=== PATIENT | male | born 1960 | race African-American/Black ===

== ENCOUNTER 2017-04-21 06:27 | Day surgery (SDC) | payer OTHER ==
[2017-04-21] VITALS (12 sets, daily range): BP systolic 123–167; BP diastolic 67–100
[~2017-04-21] VITALS: Ht 172.7 cm; Wt 96.6 kg
[~2017-04-21 06:27] MED LIST: ALBUTEROL SULF8.5 GM INH; ASPIR 8181 MG ORAL; ATENOLOL50 MG ORAL; ATORVASTATIN CA40 MG ORAL; OMEPRAZOLE40 M1 ORAL; SPIRIVA18 MCG INH; SYMBICORT 16010.2 G1 IH; ceFAZolin 1gm in D5W 55ml IVP ONE; celeBREX 200mg Cap **SURGERY PATIENTS ONLY ORAL ONE; oxyCONTIN 20mg tab ORAL ONE
--- NOTE | 2017-04-21 06:51 | Pre-Procedure Note/Attestation ---
Pre-Procedure Note/Attestation Complete Prior to Procedure Planned Procedure: right Procedure Narrative: shoulder arthroscopy, sad Indications for Procedure Pre-Operative Diagnosis: right shoulder impingment Attestation I attest that I discussed the nature of the procedure; its benefits; risks and complications; and alternatives (and the risks and benefits of such alternatives ), prior to the procedure, with the patient (or the patient's legal risk control representative). I attest that, if there was a reasonable possibility of needing a blood transfusion, the patient (or the patient's legal risk control representative) was given the [facility] standardized written summary, pursuant to the Marcell Zofia Blood Safety Act ([place] Health and Safety Code # 1645, as amended). I attest that I re-evaluated the patient just prior to the surgery and that there has been no change in the patient's H&P, except as documented below: BRIANNA EASTON Apr 21, 2017 06:51
--- NOTE | 2017-04-21 06:51 | Operative Note - PDOC ---
Operative Note Operative Note Pre-op Diagnosis: right shoulder impingment Procedure: see op report Post-op Diagnosis: same as pre-op plus Operative Findings: consistent w/pre-op dx studies Anesthesia: regional Specimen: none Complications: none Condition: stable Estimated Blood Loss: none Implant(s) used?: BRIANNA Eaton Apr 21, 2017 06:51
[2017-04-21] MEDS ORDERED: D5 1/2NS 1,000 ML IV SCH (07:00)
[2017-04-21] MEDS ORDERED: Norco 5mg/325mg tab ORAL PRN (07:00)
[2017-04-21] MEDS ORDERED: HYDROmorphone 1mg/ml Carpuject SUBQ PRN (07:00)
[2017-04-21] MEDS ORDERED: Tylenol #3 tab (300mg/30mg) ORAL PRN (07:00)
[2017-04-21] MEDS ORDERED: celeBREX 200mg Cap **SURGERY PATIENTS ONLY ORAL ONE (07:25)
[2017-04-21] MEDS ORDERED: Ropivacaine 5mg/ml Vial 20ml INJ ONE ×2 (07:37→07:46)
[2017-04-21] MEDS ORDERED: Bupivacaine w/Epi 0.25% 30ml Vial INJ ONE (07:46)
[2017-04-21] MEDS ORDERED: EPINEPHrine 1mg/1ml Amp ONE (07:46)
[2017-04-21] MEDS ORDERED: Propofol 10mg/ml 20ml IV ONE (08:16)
--- NOTE | 2017-04-21 08:27 | Anethesia Preoperative Eval ---
Anesthesia Pre-op PMH/ROS General Date of Evaluation: Apr 21, 2017 Anesthesiologist: Art ASA Score: ASA 3 Mallampati Score Class I : Soft palate, uvula, fauces, pillars visible Class II: Soft palate, uvula, fauces visible Class III: Soft palate, base of uvula visible Class IV: Only hard plate visible Mallampati Classification: Class III Surgeon: Carmine Diagnosis: Right shoulder derangement Surgical Procedure: Right shoulder arthroscopy Anesthesia History: none Family History: no anesthesia problems Allergies: Coded Allergies: No Known Allergies (Unverified , 04/20/17) Medications: see eMAR Past Medical History Cardiovascular: Reports: HTN, other - HLD, Denies: CAD, MS, valve dz, arrhythmia Pulmonary: Reports: asthma, COPD, Denies: GUILLAUME, other Gastrointestinal/Genitourinary: Reports: GERD, Denies: CRI, ESRD, other Neurologic/Psychiatric: Reports: depression/anxiety, Denies: dementia, CVA, TIA, other Endocrine: Denies: DM, hypothyroidism, steroids, other HEENT: Denies: cataract (L), cataract (R), glaucoma, PECHANGA (L), PECHANGA (R), other Hematology/Immune: Denies: anemia, DVT, bleeding disorder, other Musculoskeletal/Integumentary: Reports: OA, Denies: RA, DJD, DDD, edema, other Other: obesity PSxH Narrative: Left finger orif, right elbow sx, ,gastric sx Anesthesia Pre-op Phys. Exam Physician Exam Last Vital Signs Date Time Temp Pulse Resp B/P (MAP) Pulse Ox O2 Delivery O2 Flow Rate FiO2 04/21/17 07:04 97.0 78 20 130/85 98 Room Air Constitutional: NAD Cardiovascular: RRR Respiratory: CTA Airway Exam Mallampati Score: Class III MO: limited ROM: full Teeth: intact Anesthesia Pre-op A/P Labs see chart Studies Pre-op Studies: EKG - sr Risk Assessment & Plan Assessment: ASA III Plan: GA, right interscalene nerve block Status Change Before Surgery: No Pre-Antibiotics Drug: Ancef 2g Given Within 1 Hr of Incision: Yes Time Given: 08:40 SHOBHA MARTINEZ M.D. Apr 21, 2017 08:27
[2017-04-21] MEDS ORDERED: fentaNYL 250mcg/5ml ONE (08:30)
[2017-04-21] MEDS ORDERED: Midazolam 2mg/2ml Inj ONE (08:30)
[2017-04-21] MEDS ORDERED: Zemuron 50mg/5ml Inj IV ONE (08:30)
[2017-04-21] MEDS ORDERED: Dexamethasone 4mg/ml vial ONE (08:30)
[2017-04-21] MEDS ORDERED: Metoclopramide 10mg/2ml Inj ONE (08:30)
[2017-04-21] MEDS ORDERED: LR 1000ml ONE (08:30)
[2017-04-21] MEDS ORDERED: Lidocaine 1% MPF 10mg/ml 5ml ONE (08:30)
[2017-04-21] MEDS ORDERED: NS Irrig 4000ml IRRIG ONE ×2 (08:30→08:40)
[2017-04-21] MEDS ORDERED: Sterile Water Irrig 1000ml IRRIG ONE (08:30)
[2017-04-21] MEDS ORDERED: LR 1000ml 1,000 ML IVLG SCH (08:40)
[2017-04-21] MEDS ORDERED: LORazepam Inj 2mg/ml 1ml IV PRN (08:45)
[2017-04-21] MEDS ORDERED: Hydromorphone 0.5mg/0.5ml inj IVP PRN (08:45)
[2017-04-21] MEDS ORDERED: DiphenhydrAMINE 50mg/ml Inj IVP PRN (08:45)
[2017-04-21] MEDS ORDERED: Metoclopramide 10mg/2ml Inj IVP PRN (08:45)
[2017-04-21] MEDS ORDERED: fentaNYL 100 mcg/2 mL IV PRN (08:45)
[2017-04-21] MEDS ORDERED: Midazolam 2mg/2ml Inj IVP PRN (08:45)
--- NOTE | 2017-04-21 08:55 | Immediate Post-Op Evaluation ---
Immediate Post-Op Evalulation Immediate Post-Op Evalulation Procedure: Right shoulder arthroscopy Date of Evaluation: Apr 21, 2017 Time of Evaluation: 09:41 IV Fluids: 1.1L Blood Products: 0 Estimated Blood Loss: 5 Urinary Output: 0 Blood Pressure Systolic: 128 Blood Pressure Diastolic: 89 Pulse Rate: 84 Respiratory Rate: 15 O2 Sat by Pulse Oximetry: 98 Temperature (Fahrenheit): 97.2 Pain Score (1-10): 0 Nausea: No Vomiting: No Complications 0 Patient Status: awake, reacts, patent, none Hydration Status: adequate Drug: Ancef 2g Given Within 1 Hr of Incision: Yes Time Given: 08:40 SHOBHA MARTINEZ M.D. Apr 21, 2017 08:55
--- NOTE | 2017-04-21 08:55 | 48 Hour Post Anesthesia Eval ---
Post Anesthesia Evaluation Procedure: Right shoulder arthroscopy Date of Evaluation: Apr 21, 2017 Time of Evaluation: 11:30 Blood Pressure Systolic: 134 0: 67 Pulse Rate: 83 Respiratory Rate: 16 Temperature (Fahrenheit): 96.9 O2 Sat by Pulse Oximetry: 96 Airway: patent Nausea: No Vomiting: No Pain Intensity: 0 Hydration Status: adequate Cardiopulmonary Status: at baseline Mental Status/LOC: patient returned to baseline Post-Anesthesia Complications: 0 Follow-up care needed: ready to discharge SHOBHA MARTINEZ M.D. Apr 21, 2017 08:55
--- NOTE | 2017-04-22 08:45 | Operative Note - Dictated ---
DATE OF OPERATION: 04/21/2017 PREOPERATIVE DIAGNOSES: 1. Right shoulder rotator cuff tear. 2. Right shoulder impingement syndrome. 3. Right shoulder possible superior labrum anterior and posterior tear. POSTOPERATIVE DIAGNOSES: 1. Grade 4 superior labrum anterior and posterior tear. 2. Partial articular-sided rotator cuff tear. 3. Right shoulder impingement syndrome. PROCEDURE: 1. Right shoulder arthroscopy and extensive intra-articular debridement. 2. Right shoulder biceps tenotomy. 3. Right shoulder rotator cuff repair/debridement. 4. Right shoulder subacromial decompression, bursectomy, and release of CA ligament. SURGEON: Shin Lou M.D. ANESTHESIA: Interscalene with general. INDICATION FOR PROCEDURE: The patient is nitesh gentleman, who has had progressive right shoulder pain, elected to undergo right shoulder arthroscopy and possible rotator cuff repair with concurrent subacromial decompression bursectomy, possibility of biceps tenodesis versus tenotomy was discussed as well based on how the biceps anchor appeared. Risks, limitations, expectations, and complications of the procedure were discussed in detail including continued pain, need for future surgery, risk of anesthesia, medical complications, possible failure of the biceps tenodesis, risk of anesthesia, medical complications, infection, and nerve or vessel damage. DESCRIPTION OF PROCEDURE: An informed consent was obtained. The patient was brought to the operating room and placed the patient under interscalene general anesthesia. The patient was then carefully placed in the beach-chair position. Right shoulder was prepped and draped in a sterile manner. Time-out was performed. Portal sites were injected with 0.25% Marcaine with epinephrine. Inferolateral stab incision was then made. Trocar was introduced in the glenohumeral joint. There was no significant chondral damage. The anterior labrum appeared to be intact. There was a significant grade 4 labral tear. Overall, the superior labrum extending into the biceps tendon. There is a partial articular-sided rotator cuff tear as well. The anterior portal was established. Tenotomy of the biceps tendon was performed and the labrum was debrided back along the superior labrum to a stable . Undersurface of the rotator cuff tear was visualized and debridement of the rotator cuff was then performed. Once the rotator cuff was debrided, the biceps tendon appeared to be secured in the bicipital tuberosity area. At this point, the subacromial space was entered. Complete bursectomy was performed. Undersurface of the acromion was identified. Acromioplasty was started from lateral to medial, completed from posterior to anterior. Complete bursectomy posteriorly was debrided to better visualize the infraspinatus and posterior axillary recess. Once that was done, bursal side of the rotator cuff was evaluated and noted to be intact. At this point, it was felt that soft tissue biceps tenodesis was adequate. The instruments removed. Portal sites were closed. 3-0 Monocryl sutures were used to close the skin. Steri-Strips and sterile dressing were applied. ESTIMATED BLOOD LOSS: Minimal. COMPLICATIONS: None. SPECIMENS: None. IMPLANTS: None. Shin Lou M.D. DR: HENRIETTA JOB#: [id number] CC:
== END 2017-04-21 11:35 | disposition home or self-care (01) ==
LOC: SUR 06:27
DX: S46.011A Strain of muscle(s) and tendon(s) of the rotator cuff of right shoulder, initial encounter (principal); S43.431A Superior glenoid labrum lesion of right shoulder, initial encounter; M75.41 Impingement syndrome of right shoulder; V43.53XA Car driver injured in collision with pick-up truck in traffic accident, initial encounter; Y92.410 Unspecified street and highway as the place of occurrence of the external cause; Y99.8 Other external cause status; I10 Essential (primary) hypertension; E78.00 Pure hypercholesterolemia, unspecified; J44.9 Chronic obstructive pulmonary disease, unspecified; J45.909 Unspecified asthma, uncomplicated; F32.9 Major depressive disorder, single episode, unspecified; F41.9 Anxiety disorder, unspecified; M19.90 Unspecified osteoarthritis, unspecified site; E66.9 Obesity, unspecified; Z68.32 Body mass index [BMI] 32.0-32.9, adult; Z87.11 Personal history of peptic ulcer disease; Z87.891 Personal history of nicotine dependence; Z79.82 Long term (current) use of aspirin; Z79.899 Other long term (current) drug therapy
CPT/HCPCS: 29826; 29827; 29828; J0171; J1100; J2250; J2405; J2704; J2765; J2795; J3010; J7120; 94003; 94150